=== PATIENT | female | born 1950 | race Two or more races ===

== ENCOUNTER 2020-11-23 10:45 | Outpatient (CLI) | payer MEDICARE, BC ==
[2020-11-23 12:54] LABS: BASOPHILS % (AUTO) 0.4 % (0.0-2.0); EOSINOPHILS % (AUTO) 2.1 % (0.0-6.0); HEMATOCRIT 43 % (33-45); HEMOGLOBIN 14.2 g/dL (11.5-14.8); LYMPHOCYTES % (AUTO) 41.7 % (20.0-44.0); MEAN CORPUSCULAR HGB CONC 33 g/dl (31.0-36.0); MEAN CORPUSCULAR VOLUME 91 fL (82-100); MONOCYTES # (AUTO) 0.7 /CMM (0.1-1.30); MONOCYTES % (AUTO) 9.4 % (2.0-12.0); NEUTROPHILS # (AUTO) 3.4 /CMM (1.8-8.9); NEUTROPHILS % (AUTO) 46.4 % (43.0-81.0); PLATELET COUNT (AUTO) 212 /CMM (150-450); RED BLOOD CELL COUNT(AUTO) 4.73 MIL/uL (4.0-5.2); WHITE BLOOD COUNT (AUTO) 7.3 K/uL (4.3-11.0)
[2020-11-23 13:16] LABS: ALBUMIN 3.6 g/dL (3.4-5.0); BILIRUBIN,TOTAL 0.3 mg/dL (0.2-1.0); CALCIUM, SERUM 9.2 mg/dL (8.5-10.1); CREATININE 0.7 mg/dL (0.6-1.3); MAGNESIUM 2.1 mg/dL (1.8-2.4); PHOSPHORUS 3.2 mg/dL (2.5-4.9)
[2020-11-27 13:17] LABS: BILIRUBIN,URINE NEGATIVE (NEGATIVE); COLOR,URINE YELLOW (YELLOW); LEUKOCYTE ESTERASE ,URINE SMALL (NEGATIVE); NITRITE, URINE POSITIVE (NEGATIVE); PH,URINE 5.5 (5.0-8.0); PROTEIN,URINE NEGATIVE (NEGATIVE); UGLUCOSE NEGATIVE (NEGATIVE); UROBILINOGEN,URINE 0.2 EU/dL (0.2)
[2020-11-27 13:19] LABS: CREATININE, URINE 102.2 MG/DL (30.0-125.0); URINE TOTAL PROTEIN 10.1 mg/dL (0-11.9)
[2020-11-27 13:47] LABS: RBC,URINE 0-2 /HPF (0-2)
[2020-11-27 13:48] LABS: BACTERIA,URINE Few /HPF (None Seen); SQUAMOUS EPITHELIAL CELL,UR 0-2 /HPF (None Seen)
== END 2020-11-23 23:59 | disposition home or self-care (01) ==
LOC: MSC 10:45
PROVIDERS: ATTEND Internal Medicine
DX: Z01.818 Encounter for other preprocedural examination (principal); K05.6 Periodontal disease, unspecified; F90.9 Attention-deficit hyperactivity disorder, unspecified type; R74.01 Elevation of levels of liver transaminase levels; R94.31 Abnormal electrocardiogram [ECG] [EKG]; Z87.39 Personal history of other diseases of the musculoskeletal system and connective tissue; Z79.899 Other long term (current) drug therapy
CPT/HCPCS: 36415; 80053; 80061; 80074; 81001; 82043; 82306; 82570 ×2; 83036; 83735; 84100; 84155; 85025; 87086; 87806; G0463

== ENCOUNTER 2021-05-11 11:26 | Outpatient (CLI) | payer MEDICARE, BC | END 2021-05-11 23:59 | disposition home or self-care (01) | LOC: US 11:26 | PROVIDERS: ATTEND Internal Medicine | DX: N28.1 Cyst of kidney, acquired (principal) | CPT/HCPCS: 76770-TC ==

== ENCOUNTER → 2021-05-14 | Outpatient (CLI) | payer MEDICARE, BC | END | disposition home or self-care (01) | LOC: MSC 15:00 | PROVIDERS: ATTEND Internal Medicine | DX: M54.5 Low back pain (principal); R74.01 Elevation of levels of liver transaminase levels; R94.31 Abnormal electrocardiogram [ECG] [EKG]; F90.9 Attention-deficit hyperactivity disorder, unspecified type ==

== ENCOUNTER 2021-05-24 12:09 | Outpatient (CLI) | payer MEDICARE, BC | END 2021-05-24 23:59 | disposition home or self-care (01) | LOC: MRI 12:09 | PROVIDERS: ATTEND Internal Medicine | DX: M54.5 Low back pain (principal) | CPT/HCPCS: 72148-TC ==

== ENCOUNTER → 2021-05-24 | Outpatient (CLI) | payer MEDICARE, BC | END | disposition home or self-care (01) | LOC: MSC 15:15 | PROVIDERS: ATTEND Internal Medicine | DX: M54.5 Low back pain (principal); F90.9 Attention-deficit hyperactivity disorder, unspecified type; R74.01 Elevation of levels of liver transaminase levels ==

== ENCOUNTER → 2021-05-25 | Outpatient (CLI) | payer MEDICARE, BC | END | disposition home or self-care (01) | LOC: MSC 15:15 | PROVIDERS: ATTEND Internal Medicine | DX: M54.5 Low back pain (principal); F90.9 Attention-deficit hyperactivity disorder, unspecified type; R74.01 Elevation of levels of liver transaminase levels ==

== ENCOUNTER 2022-07-25 11:35 | Outpatient (CLI) | payer MEDICARE, BC ==
[2022-07-25] MEDS ORDERED: COLLAGENASE 5 GM TUBE UD TP ONE (12:42)
== END 2022-07-25 23:59 | disposition home or self-care (01) ==
LOC: WOU 11:35
PROVIDERS: ATTEND Surgery
DX: T81.31XA Disruption of external operation (surgical) wound, not elsewhere classified, initial encounter (principal); L90.5 Scar conditions and fibrosis of skin; L92.9 Granulomatous disorder of the skin and subcutaneous tissue, unspecified
CPT/HCPCS: 11042; 17250; A6209

== ENCOUNTER 2022-07-31 11:47 | Outpatient (CLI) | payer MEDICARE, BC | END 2022-07-31 23:59 | disposition home health service (06) | LOC: WOU 11:47 | PROVIDERS: ATTEND Specialist | DX: Z01.818 Encounter for other preprocedural examination (principal); T81.31XD Disruption of external operation (surgical) wound, not elsewhere classified, subsequent encounter | CPT/HCPCS: G0463; A6209 ==

== ENCOUNTER → 2022-08-01 | Outpatient (CLI) | payer MEDICARE, BC | END | disposition home health service (06) | LOC: WOU 13:05 | PROVIDERS: ATTEND Surgery | DX: T81.31XA Disruption of external operation (surgical) wound, not elsewhere classified, initial encounter (principal); L90.5 Scar conditions and fibrosis of skin | CPT/HCPCS: 11042; A6209 ==

== ENCOUNTER 2022-08-05 13:15 | Outpatient (CLI) | payer MEDICARE, BC ==
[2022-08-05] MEDS ORDERED: SILVER NITRATE APPLICATOR 1 EA BOX ONE (14:07)
== END 2022-08-05 23:59 | disposition home health service (06) ==
LOC: WOU 13:15
PROVIDERS: ATTEND Surgery
DX: T81.31XA Disruption of external operation (surgical) wound, not elsewhere classified, initial encounter (principal); L90.5 Scar conditions and fibrosis of skin
CPT/HCPCS: 11042; A6209

== ENCOUNTER 2022-08-08 13:12 | Outpatient (CLI) | payer MEDICARE, BC ==
[2022-08-08] MEDS ORDERED: SILVER NITRATE APPLICATOR 1 EA BOX ONE (13:30)
[2022-08-08] MEDS ORDERED: BACI/NEOM/POLY B OINT PKT 1 UDPKT PACKET ONE (13:42)
== END 2022-08-08 23:59 | disposition home health service (06) ==
LOC: WOU 13:12
PROVIDERS: ATTEND Surgery
DX: T81.31XA Disruption of external operation (surgical) wound, not elsewhere classified, initial encounter (principal); L90.5 Scar conditions and fibrosis of skin
CPT/HCPCS: 11042

== ENCOUNTER 2022-08-15 13:13 | Outpatient (CLI) | payer MEDICARE, BC | END 2022-08-15 23:59 | disposition home health service (06) | LOC: WOU 13:13 | PROVIDERS: ATTEND Surgery | DX: T81.31XA Disruption of external operation (surgical) wound, not elsewhere classified, initial encounter (principal); L90.5 Scar conditions and fibrosis of skin | CPT/HCPCS: G0463 ==

== ENCOUNTER 2022-09-12 12:49 | Outpatient (CLI) | payer MEDICARE, BC | END 2022-09-12 23:59 | disposition home or self-care (01) | LOC: WOU 12:49 | PROVIDERS: ATTEND Surgery | DX: T81.31XD Disruption of external operation (surgical) wound, not elsewhere classified, subsequent encounter (principal); L90.5 Scar conditions and fibrosis of skin | CPT/HCPCS: G0463 ==

== ENCOUNTER 2023-02-05 12:46 | Emergency (ER) | payer MEDICARE, BC ==
[~2023-02-05] VITALS: Ht 165.1 cm; Wt 68.0 kg
--- NOTE | 2023-02-05 13:00 | NUR ---
[id number] and son, c/o L thumb, R wrist pain, LAC on the chin s/p tripped and fall, no loc 5/10 pain scale. PLACED IN BED, AAOX4, BREATHING EVEN AND UNLABORED SATURATING AT 96RA%
[2023-02-05] MEDS ORDERED: TDAP [DIPH/PERTUSSIS/TET] 0.5 ML VIAL IM ONE ×2 (13:10→13:30)
--- NOTE | 2023-02-05 13:30 | NUR ---
PATIENT TAKEN TO CT VIA [facility]EN
[2023-02-05] MEDS ORDERED: IBUPROFEN 400 MG TABLET PO ONE (15:00)
[2023-02-05] MEDS ORDERED: IBUPROFEN 400 MG TABLET ONE (15:03)
[2023-02-05] MEDS ORDERED: AMOX-430 PO (15:28)
[2023-02-05] MEDS ORDERED: KETO10TA2 PO (15:28)
[2023-02-05] MEDS ORDERED: ACET-73 PO (15:28)
[2023-02-05] MEDS ORDERED: IBUP-1957 PO (15:28)
--- NOTE | 2023-02-05 15:39 | NUR ---
Patient discharged to home in stable condition. Written and verbal after care instructions given. Patient verbalizes understanding of instruction.
[2023-02-05 15:41] VITALS: BP 120/65
== END 2023-02-05 15:39 | disposition home or self-care (01) ==
LOC: ER 12:50
DX: S62.512A Displaced fracture of proximal phalanx of left thumb, initial encounter for closed fracture (principal); S02.2XXA Fracture of nasal bones, initial encounter for closed fracture; S02.612A Fracture of condylar process of left mandible, initial encounter for closed fracture; S01.81XA Laceration without foreign body of other part of head, initial encounter; Z79.899 Other long term (current) drug therapy; W19.XXXA Unspecified fall, initial encounter; Y93.89 Activity, other specified; Y92.89 Other specified places as the place of occurrence of the external cause; Y99.8 Other external cause status
CPT/HCPCS: 70450-TC; 70486-TC; 72125-TC; 73030-TC; 73110; 73130-TC; 90715